=== PATIENT | male | born 1955 | race Caucasian/White ===

== ENCOUNTER → 2016-09-28 | Outpatient (CLI) | payer OTHER ==
[~2016-09-28] MED LIST: ATOR10TA88 PO; CHOL200010 PO; GABA-113 PO; HYDR12.55 PO; LISI-790 PO; METO25TA3 PO
--- NOTE | 2016-09-28 15:06 | DIAGNOSTIC IMAGING REPORT ---
CT OF THE CHEST WITHOUT IV CONTRAST CLINICAL HISTORY: Pulmonary nodule. COMPARISON STUDY: Chest CT November 24, 2015 and February 29, [address] of the abdomen and pelvis December 11, 2009. CT DOSE: 881.43 mGy.cm TECHNIQUE: Axial images of the chest were obtained without IV contrast. Images were reviewed in the axial, sagittal, and coronal planes. IV contrast was not administered for this examination. FINDINGS: No enlarged axillary, mediastinal or hilar lymph nodes are present. There is a partially calcified precarinal lymph node. There is no pericardial effusion. The size of the heart is normal. Central airways are patent. There is no consolidation to suggest pneumonia. Mild emphysema is noted. A 7 mm groundglass subpleural opacity within the left upper lobe shown on image 165 of [address] of November 24, 2015. This remains indeterminate. A 4 mm right middle lobe nodule shown image [address] of December 11, 2009. Therefore, this is benign. A few additional lower lung nodules are also unchanged. No new nodules are present. The bony thorax and upper abdomen are unremarkable with exception of a gallstone within the gallbladder. IMPRESSION: Unchanged appearance of the chest since initial CT of November 24, 2015. No change in the 7 mm subpleural groundglass opacity within the left upper lobe. This remains indeterminate and a follow-up chest CT in 6 months is recommended. The remainder of the pulmonary nodules are also unchanged since initial chest CT. Electronically signed by: Luciano Hannah M.D. 09/28/2016 3:05 PM Dictated Date/Time: 09/28/2016 2:55 PM
== END | disposition home or self-care (01) ==
LOC: C.CTS 14:37
PROVIDERS: ATTEND Internal Medicine
DX: R91.1 Solitary pulmonary nodule (principal)

== ENCOUNTER → 2016-10-28 | Outpatient (CLI) | payer OTHER ==
[2016-10-28 12:39] LABS: BASO % 0.6 %; BASO ABS # 0.06 K/uL (0-0.2); COMPLETE YES; EOS % 1.7 %; HEMATOCRIT 42.6 % (42-52); IG% 0.2 %; LYMPH ABS # 3.55 K/uL (1.2-3.4); MEAN CELL VOLUME 91.6 fL (80-100); MEAN CORPUSCULAR HEMOGLOBIN 31.8 pg (25-34); MEAN CORPUSCULAR HGB CONC 34.7 g/dl (32-36); MEAN PLATELET VOLUME 9.7 fL (7.4-10.4); MONO % 5.7 %; NEUT % 58.8 %; PLATELET COUNT 287 K/uL (130-400); RED BLOOD COUNT 4.65 M/uL (4.7-6.1); WHITE BLOOD COUNT 10.76 K/uL (4.8-10.8)
[2016-10-28 12:50] LABS: ALT/SGPT 80 U/L (12-78); BLOOD UREA NITROGEN 11 mg/dl (7-18); BUN/CREATININE RATIO 14.9 (10-20); CARBON DIOXIDE 22 mmol/L (21-32); CHLORIDE 101 mmol/L (98-107); CREATININE 0.75 mg/dl (0.60-1.40); GLUCOSE 89 mg/dl (70-99); POTASSIUM 3.6 mmol/L (3.5-5.1); SODIUM 136 mmol/L (136-145)
[2016-10-28 12:55] LABS: ALB/GLOB RATIO 0.9 (0.9-2); ALKALINE PHOSPHATASE 67 U/L (45-117); AST/SGOT 57 U/L (15-37)
[2016-10-28 12:57] LABS: ESTIMATED AVERAGE GLUCOSE 108 mg/dl; HA1C FLAG Normal (Normal)
== END | disposition home or self-care (01) ==
LOC: C.LABBFT 10:58
PROVIDERS: ATTEND Internal Medicine
DX: B19.20 Unspecified viral hepatitis C without hepatic coma (principal); Z12.5 Encounter for screening for malignant neoplasm of prostate; R73.9 Hyperglycemia, unspecified; E55.9 Vitamin D deficiency, unspecified

== ENCOUNTER → 2017-04-03 | Outpatient (CLI) | payer OTHER ==
--- NOTE | 2017-04-03 11:04 | DIAGNOSTIC IMAGING REPORT ---
(CHEST) THORAX WITHOUT CLINICAL HISTORY: 61 years-old Male presenting with 6 month pulmonary nodule follow-up. TECHNIQUE: Multidetector CT imaging of the chest was performed without the use of intravenous contrast. IV contrast: None. A dose lowering technique was used consistent with the principles of ALARA (as low as reasonably achievable). COMPARISON: 09/28/2016. CT DOSE (mGy.cm): The estimated cumulative dose is 549.78 mGy.cm. FINDINGS: [employer] topogram: Unremarkable. On soft tissue windows, normal thyroid and thoracic inlet. Few calcified precarinal mediastinal lymph nodes, possibly indicating prior granulomatous infection. Few subcentimeter subcarinal lymph nodes, nonspecific evaluation of the jules limited due to lack of intravenous contrast. Atherosclerosis of the aortic arch. Normal heart size. Coronary artery calcification. No pericardial or pleural effusion. Hepatic steatosis. Cholelithiasis. On lung windows, previously noted groundglass (subsolid) subpleural nodule in the left upper lobe again measures 7 mm in greatest dimension (series 4 image 175), not significantly changed. Previously noted solid right middle lobe nodule again measures 4 mm (series 4 image 238), unchanged since 2009. Subtle centrilobular groundglass opacities at the lung apices, more prominent on the current exam. Few additional small nodules unchanged from prior. Mild right upper lobe rocket wall thickening. On bone windows, degenerative changes of the thoracic spine. IMPRESSION: 1. No significant change in the subsolid left upper lobe nodule since 11/24/2015, which again measures 7 mm. The morphology remains suspicious however. Additional stable solid pulmonary nodules. Continued follow-up of the subsolid nodule could be considered. Fleischner Society 2017 recommendations below. 2. Subtle centrilobular groundglass opacities in the upper lobes, more prominent on the current exam. In the setting of a history of smoking, this could represent respiratory bronchiolitis among other possible etiologies. 3. Calcified mediastinal lymph nodes could suggest prior granulomatous infection. 4. Hepatic steatosis. Please refer to below summary of Fleischner Society 2017 recommendations for follow-up of incidental CT nodules (Neelima Urbano et al. Guidelines for management of incidental pulmonary nodules detected on CT images: From the Fleischner Society 2017. Radiology 2017; 284: 228-243.) SOLID NODULES Single nodule; size <6 mm * Low risk patients: No routine follow-up * High risk patients: Optional CT at 12 months Single nodule; size 6-8 mm * Low risk patients: CT at 6-12 months, then consider CT at 18-24 months * High risk patients: CT at 6-12 months, then at 18-24 months Single nodule; size >8 mm * Either low or high risk patients: Considered CT at 3 months, PET/CT, or tissue sampling Multiple nodules; size <6 mm * Low risk patients: No routine follow up * High risk patients: Optional CT at 12 months Multiple nodules; size 6-8 mm * Low risk patients: CT at 3-6 months, then consider CT at 18-24 months * High risk patients: CT at 3-6 months, then at 18-24 months Multiple nodules; size >8 mm * Low risk patients: CT at 3-6 months, then consider at 18-24 months * High risk patients: CT at 3-6 months, then at 18-24 months Note: These guidelines apply to incidental nodules. These guidelines did not apply to patients younger than 35 years, immunocompromised patients, or patients with cancer. * Low risk patients: Minimal or absent history of smoking and/or other known risk factors * High risk patients: History of smoking, exposure to other carcinogens, emphysema, fibrosis, upper lobe location, family history of lung cancer, etc. * If a nodule up to 8 mm is partly solid or is ground glass further follow-up is required after 24 months to exclude possible slow growing adenocarcinoma SUBSOLID NODULES Single ground-glass nodule * Nodule size < 6 mm: No routine follow-up * Nodule size > or = 6 mm: CT at 6-12 months to confirm persistence, then CT every 2 years until 5 years Single part-solid nodule * Nodule size < 6 mm: No routine follow-up * Nodules size > or = 6 mm: CT at 3-6 months to confirm persistence. If unchanged and solid component remains < 6 mm, annual CT should be performed for 5 years Multiple nodules * Nodule size < 6 mm: CT at 3-6 months. If stable, consider CT at 2 and 4 years. * Nodules size > or = 6 mm: CT at 3-6 months. Subsequent management based on the most suspicious nodule(s) Electronically signed by: Mark Kendall M.D. 04/03/2017 11:02 AM Dictated Date/Time: 04/03/2017 10:53 AM
== END | disposition home or self-care (01) ==
LOC: C.CTS 10:31
PROVIDERS: ATTEND Internal Medicine
DX: R91.1 Solitary pulmonary nodule (principal)

== ENCOUNTER → 2017-05-22 | Outpatient (CLI) | payer OTHER ==
[2017-05-22 17:48] LABS: CHOLESTEROL/HDL RATIO 2.1
== END | disposition home or self-care (01) ==
LOC: C.LABBFT 14:16
PROVIDERS: ATTEND Internal Medicine
DX: E78.5 Hyperlipidemia, unspecified (principal)

== ENCOUNTER → 2017-11-23 | Outpatient (CLI) | payer OTHER ==
[~2017-11-23] MED LIST changes: +ATOR10TA82 PO; -ATOR10TA88 PO
[2017-11-23 16:30] LABS: BASO % 0.4 %; BASO ABS # 0.04 K/uL (0-0.2); EOS % 2.4 %; EOS ABS # 0.27 K/uL (0-0.5); HEMATOCRIT 41.2 % (42-52); HEMOGLOBIN 14.3 g/dL (14.0-18.0); IG# 0.01 K/uL (0.00-0.02); LYMPH % 30.7 %; LYMPH ABS # 3.49 K/uL (1.2-3.4); MEAN CELL VOLUME 92.8 fL (80-100); MEAN CORPUSCULAR HEMOGLOBIN 32.2 pg (25-34); MEAN CORPUSCULAR HGB CONC 34.7 g/dl (32-36); MEAN PLATELET VOLUME 9.4 fL (7.4-10.4); MONO % 4.6 %; MONO ABS # 0.52 K/uL (0.11-0.59); NEUT % 61.8 %; NEUT ABS # 7.04 K/uL (1.4-6.5); PLATELET COUNT 300 K/uL (130-400); RED CELL DISTRIBUTION WIDTH CV 13.9 % (11.5-14.5); RED CELL DISTRIBUTION WIDTH SD 47.2 fL (36.4-46.3); WHITE BLOOD COUNT 11.37 K/uL (4.8-10.8)
[2017-11-23 16:41] LABS: ALBUMIN 3.4 gm/dl (3.4-5.0); ALT/SGPT 91 U/L (12-78); AST/SGOT 76 U/L (15-37); BLOOD UREA NITROGEN 11 mg/dl (7-18); CALCIUM 8.6 mg/dl (8.5-10.1); CARBON DIOXIDE 32 mmol/L (21-32); CREATININE 0.85 mg/dl (0.60-1.40); GLUCOSE 102 mg/dl (70-99); POTASSIUM 3.2 mmol/L (3.5-5.1); SODIUM 139 mmol/L (136-145)
[2017-11-23 16:51] LABS: ALKALINE PHOSPHATASE 77 U/L (45-117); TOTAL PROTEIN 7.9 gm/dl (6.4-8.2)
== END | disposition home or self-care (01) ==
LOC: C.LABBFT 14:19
PROVIDERS: ATTEND Internal Medicine
DX: B19.20 Unspecified viral hepatitis C without hepatic coma (principal); E78.5 Hyperlipidemia, unspecified; E55.9 Vitamin D deficiency, unspecified; Z12.5 Encounter for screening for malignant neoplasm of prostate

== ENCOUNTER → 2017-11-29 | Outpatient (CLI) | payer OTHER ==
--- NOTE | 2017-11-29 16:42 | DIAGNOSTIC IMAGING REPORT ---
(CHEST) THORAX WITHOUT CLINICAL HISTORY: 62 years-old Male presenting with R91.1 Pulmonary [id number]. TECHNIQUE: Multidetector CT imaging of the chest was performed without the use of intravenous contrast. IV contrast: None. A dose lowering technique was used consistent with the principles of ALARA (as low as reasonably achievable). COMPARISON: 04/03/2017. CT DOSE (mGy.cm): The estimated cumulative dose is 865.83 mGy.cm. FINDINGS: [employer] topogram: Unremarkable. On soft tissue windows, normal thyroid and thoracic inlet. Bilateral gynecomastia. Calcified mediastinal lymph nodes noted in the precarinal region. No axillary, supraclavicular, or mediastinal lymphadenopathy. Evaluation of the jules limited without intravenous contrast. Atherosclerosis of the aorta. Normal heart size. Coronary artery calcification. No pericardial or pleural effusion. Hepatic steatosis. Cholelithiasis. Mild circumferential wall thickening of the mid to distal esophagus suggested. On lung windows, redemonstration of the peripheral/subpleural groundglass nodule in the superior segment of the lingula, which now measures 8 mm (series 4 image 157), previously 7 mm. Multiple additional vague groundglass nodules in the upper lobes. This is similar to prior exam. Solid peripheral 4 mm right middle lobe nodule (series 4 image 238) calcified granuloma noted. No new nodule. No significant bronchial wall thickening. Airways patent. On bone windows, degenerative changes of the spine. IMPRESSION: 1. Stable to slight interval increase in size of the 8 mm groundglass peripheral nodule in the superior segment of the lingula. This remains most concerning for an adenomatous lesion, such as adenocarcinoma in situ. 2. Stable vague groundglass nodularity in the lung apices could represent respiratory bronchiolitis, especially if the patient has a history of smoking. 3. Stable solid right middle lobe nodule. No new pulmonary nodule. 4. Hepatic steatosis. 5. Cholelithiasis. Please refer to below summary of Fleischner Society 2017 recommendations for follow-up of incidental CT nodules (Neelima Urbano et al. Guidelines for management of incidental pulmonary nodules detected on CT images: From the Fleischner Society 2017. Radiology 2017; 284: 228-243.) SOLID NODULES Single nodule; size < 6 mm * Low risk patients: No routine follow-up * High risk patients: Optional CT at 12 months Single nodule; size 6-8 mm * Low risk patients: CT at 6-12 months, then consider CT at 18-24 months * High risk patients: CT at 6-12 months, then at 18-24 months Single nodule; size > 8 mm * Either low or high risk patients: Considered CT at 3 months, PET/CT, or tissue sampling Multiple nodules; size < 6 mm * Low risk patients: No routine follow up * High risk patients: Optional CT at 12 months Multiple nodules; size 6-8 mm * Low risk patients: CT at 3-6 months, then consider CT at 18-24 months * High risk patients: CT at 3-6 months, then at 18-24 months Multiple nodules; size > 8 mm * Low risk patients: CT at 3-6 months, then consider at 18-24 months * High risk patients: CT at 3-6 months, then at 18-24 months SUBSOLID NODULES Single ground-glass nodule * Nodule size < 6 mm: No routine follow-up * Nodule size > or = 6 mm: CT at 6-12 months to confirm persistence, then CT every 2 years until 5 years Single part-solid nodule * Nodule size < 6 mm: No routine follow-up * Nodules size > or = 6 mm: CT at 3-6 months to confirm persistence. If unchanged and solid component remains < 6 mm, annual CT should be performed for 5 years Multiple nodules * Nodule size < 6 mm: CT at 3-6 months. If stable, consider CT at 2 and 4 years. * Nodules size > or = 6 mm: CT at 3-6 months. Subsequent management based on the most suspicious nodule(s) NOTE: 1) These guidelines apply to incidental nodules. These guidelines do NOT apply to patients younger than 35 years, immunocompromised patients, or patients with cancer. 2) Risk categories: * Low risk patients: Minimal or absent history of smoking and/or other known risk factors * High risk patients: History of smoking, exposure to other carcinogens, emphysema, fibrosis, upper lobe location, family history of lung cancer, etc. 2) If a nodule up to 8 mm is partly solid or is ground glass, further follow-up is required after 24 months to exclude possible slow growing adenocarcinoma. Electronically signed by: Mark Kendall M.D. 11/29/2017 4:41 PM Dictated Date/Time: 11/29/2017 4:35 PM
== END | disposition home or self-care (01) ==
LOC: C.CTS 16:07
PROVIDERS: ATTEND Internal Medicine
DX: R91.1 Solitary pulmonary nodule (principal); R91.8 Other nonspecific abnormal finding of lung field; K76.0 Fatty (change of) liver, not elsewhere classified; K80.20 Calculus of gallbladder without cholecystitis without obstruction

== ENCOUNTER → 2017-12-26 | Outpatient (CLI) | payer OTHER ==
[2017-12-26 16:53] LABS: BASO % 0.5 %; BASO ABS # 0.05 K/uL (0-0.2); EOS % 2.1 %; EOS ABS # 0.23 K/uL (0-0.5); HEMATOCRIT 39.7 % (42-52); HEMOGLOBIN 13.4 g/dL (14.0-18.0); IG# 0.02 K/uL (0.00-0.02); LYMPH % 32.5 %; LYMPH ABS # 3.48 K/uL (1.2-3.4); MEAN CELL VOLUME 92.8 fL (80-100); MEAN CORPUSCULAR HEMOGLOBIN 31.3 pg (25-34); MEAN CORPUSCULAR HGB CONC 33.8 g/dl (32-36); MEAN PLATELET VOLUME 9.3 fL (7.4-10.4); MONO % 6.3 %; MONO ABS # 0.67 K/uL (0.11-0.59); NEUT % 58.4 %; NEUT ABS # 6.25 K/uL (1.4-6.5); PLATELET COUNT 268 K/uL (130-400); RED CELL DISTRIBUTION WIDTH CV 13.4 % (11.5-14.5); RED CELL DISTRIBUTION WIDTH SD 45.4 fL (36.4-46.3)
[2017-12-26 17:58] LABS: ALBUMIN 3.3 gm/dl (3.4-5.0); ALT/SGPT 20 U/L (12-78); AST/SGOT 19 U/L (15-37); BLOOD UREA NITROGEN 8 mg/dl (7-18); CALCIUM 8.7 mg/dl (8.5-10.1); CARBON DIOXIDE 29 mmol/L (21-32); CREATININE 0.81 mg/dl (0.60-1.40); GLUCOSE 81 mg/dl (70-99); POTASSIUM 3.5 mmol/L (3.5-5.1); SODIUM 135 mmol/L (136-145)
[2017-12-26 17:59] LABS: ALKALINE PHOSPHATASE 72 U/L (45-117); TOTAL PROTEIN 7.8 gm/dl (6.4-8.2)
== END | disposition home or self-care (01) ==
LOC: C.LABBFT 14:08
PROVIDERS: ATTEND Internal Medicine
DX: B18.2 Chronic viral hepatitis C (principal); Z79.899 Other long term (current) drug therapy

== ENCOUNTER 2020-07-22 13:57 | Inpatient (IN) ==
[2020-07-22] MEDS ORDERED: SODIUM CHLORIDE 0.9% 1000ML 1,000 ML IV ONE (14:31)
[2020-07-22] MEDS ORDERED: ONDANSETRON INJ 2 MG/ML 2 ML VIAL IV STA (14:31)
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
--- NOTE | 2020-07-22 15:26 | XRay Report ---
XR chest 1V portable HISTORY: Shortness of breath. Cough. COMPARISON: Chest 12/07/2012. PET CT 06/02/2020. FINDINGS: No pneumothorax. No pleural effusions. The heart is normal in size. No new focal lung conso lidations to suggest pneumonia. No evidence for pulmonary edema. The patient's known pulmonary nodule s are better appreciated on the recent PET scan. IMPRESSION: No acute process. ACT 112: Negative or not required by law. Electronically signed by: Ad Aldridge M.D. 07/22/2020 3:25 PM
[2020-07-22 16:07] LABS: Basophils # (auto) 0.01 K/uL (0-0.2); Basophils % (auto) 0.1 %; Eosinophils # (auto) 0.06 K/uL (0-0.5); Eosinophils % (auto) 0.4 %; Hematocrit (blood only) 36.6 % (42-52); Hemoglobin 13.2 g/dL (14.0-18.0); Immature Granulocytes # (auto) 0.02 K/uL (0.00-0.02); Immature Granulocytes % (auto) 0.1 %; Lymphocytes # (auto) 1.79 K/uL (1.2-3.4); Lymphocytes % (auto) 11.6 %; Mean Corpuscular Hemoglobin 31.2 pg (25-34); Mean Corpuscular Hgb Conc 36.1 g/dL (32-36); Mean Corpuscular Volume 86.5 fL (80-100); Monocytes # (auto) 0.85 K/uL (0.11-0.59); Monocytes % (auto) 5.5 %; Neutrophils # (auto) 12.64 K/uL (1.4-6.5); Neutrophils % (auto) 82.3 %; Platelet Count 319 K/uL (130-400); RDW Standard Deviation 41.5 fL (36.4-46.3); Red Blood Count 4.23 M/uL (4.7-6.1); White Blood Count 15.37 K/uL (4.8-10.8)
[2020-07-22 16:24] LABS: Alanine Aminotransferase 19 U/L (12-78); Albumin Level 3.8 gm/dl (3.4-5.0); Aspartate Aminotransferase 16 U/L (15-37); BUN Creatinine Ratio 14.2 (10-20); Blood Urea Nitrogen 9 mg/dl (7-18); Calcium 9.1 mg/dl (8.5-10.1); Carbon Dioxide 27 mmol/L (21-32); Chloride 84 mmol/L (98-107); Est GFR (African American) 119.8; Est GFR (Non-African American) 103.4; Glucose 96 mg/dl (70-99); Lipase 109 U/L (73-393); Sodium 121 mmol/L (136-145)
[2020-07-22 16:28] LABS: Albumin Globulin Ratio 0.9 (0.9-2); Alkaline Phosphatase 77 U/L (45-117); Bilirubin,Total 0.7 mg/dl (0.2-1); Globulin 4.4 gm/dl (2.5-4.0); Total Protein 8.2 gm/dl (6.4-8.2); Troponin I < 0.015 ng/ml (0-0.045)
[2020-07-22 16:41] LABS: Appearance Urine Clear (Clear); Bacteria Urine Automated Negative (Negative); Bilirubin Urine Negative (Negative); Blood Urine 1+ (Negative); Cast Urine Automated 0 /lpf (0-5); Color Urine Yellow; Glucose Urine UA Negative (Negative); Ketones Urine 3+ (Negative); Leukocyte Esterase Urine Trace (Negative); Nitrite Urine Negative (Negative); RBC Urine Automated >30 /hpf (0-4); Urobilinogen Urine Negative (Negative); pH Urine >= 9.0 (4.5-7.5)
[2020-07-22 16:52] LABS: Protein Urine 1+ (Negative)
[2020-07-22 16:53] LABS: Sulfosalicylic Acid Urine Positive (Negative)
[2020-07-22] MEDS ORDERED: IOVERSOL 100ml IV ONE (17:25)
--- NOTE | 2020-07-22 17:37 | CT Scan Report ---
CT OF THE HEAD WITHOUT CONTRAST CLINICAL HISTORY: vomiting, hyponatremia COMPARISON STUDY: Head CT December 26, 2007. CT DOSE: 729.78 mGycm TECHNIQUE: Helical axial images of the head were obtained without IV contrast. Automated exposure con trol was utilized for the study. A dose lowering technique was utilized adhering to the principles o f ALARA. FINDINGS: No acute intracranial hemorrhage, midline shift or mass effect is present. The ventricular system is unremarkable. The basal cisterns are patent. No extra-axial collections are present. There are no findings to suggest acute dural sinus thrombosis or acute territorial infarct. No significant calvarial abnormalities are present. Visualized portions of the sinuses and mastoid air cells are mitchel ar. IMPRESSION: No acute intracranial findings. ACT 112: Negative or not required by law. Electronically signed by: Luciano Hannah M.D. 07/22/2020 5:36 PM
--- NOTE | 2020-07-22 17:53 | CT Scan Report ---
CT OF THE ABDOMEN AND PELVIS WITH CONTRAST CLINICAL HISTORY: abdominal pain, vomiting COMPARISON STUDY: CT of the abdomen and pelvis December 11, 2009. PET/CT June 10, 2020. TECHNIQUE: Following IV administration of 95 mL of Optiray-320, axial images of the abdomen and pelvi s were obtained from the lung bases to the proximal femurs. Images were reviewed in the axial, sagitt al, and coronal planes. IV contrast was administered without complication. Automated exposure contro l was utilized for the study. A dose lowering technique was utilized adhering to the principles of A DIANNA. CT DOSE: 941.80 mGycm FINDINGS: Lung bases are unremarkable. Note is made of mild circumferential wall thickening of the di stal esophagus. Stomach is mildly fluid-filled. Gallstone is noted within the gallbladder without kleber dence for acute cholecystitis. No suspicious hepatic lesions are present. There is no biliary or panc reatic ductal dilatation. The spleen, adrenal glands and pancreas are unremarkable as is the right ki dney. A 2.2 cm left renal lesion likely reflects a cyst. There is no hydronephrosis. There is no evid ence for a bowel obstruction. The appendix is not visualized. There is minimal infiltration with slig ht thickening of the adjacent peritoneal reflection adjacent to the distal descending colon. There is extensive colonic diverticulosis. There is no free air or abscess. Mild distention of the bladder is noted. There is a fat-containing left inguinal hernia. There is a lipoma within the right gluteus ma ximus. No acute fracture or suspicious lesion is identified within visualized skeletal structures. Th ere is no lymphadenopathy or ascites. There is moderate plaque of the abdominal aorta which is normal in caliber. IMPRESSION: 1. Colonic diverticulosis with subtle infiltration adjacent to the distal descending colon. Mild acut e diverticulitis would be difficult to exclude. No free air or abscess. 2. Wall thickening of the distal esophagus which may reflect esophagitis. 3. Cholelithiasis. ACT 112: Negative or not required by law. Electronically signed by: Luciano Hannah M.D. 07/22/2020 5:52 PM
[2020-07-22] MEDS ORDERED: PIPERACILLIN/TAZOBACTAM 4.5 GM/120 ML BAG IV ONE (17:57)
[2020-07-22] MEDS ORDERED: PIPERACILL/TAZOBAC CONSULT ACTIVE PRN (17:57)
[2020-07-22] MEDS ORDERED: metroNIDAZOLE 500 MG/100 ML BAG IV STA (17:58)
[2020-07-22] MEDS ORDERED: FAMOTIDINE 20MG/5ML IV PUSH IV STA (18:07)
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
[2020-07-22] MEDS: CIPROFLOXACIN / D5W 400 MG/200 ML BAG IV SCH (18:27)
[2020-07-22] MEDS: metroNIDAZOLE 500 MG/100 ML BAG IV SCH (22:52)
[2020-07-22] MEDS: GABAPENTIN 300 MG CAP PO SCH (22:53)
[2020-07-22] MEDS: ROSUVASTATIN CALCIUM 5 MG TAB PO SCH (22:53)
[2020-07-22] MEDS: POTASSIUM CHLORIDE 40 MEQ in SODIUM CHLORIDE 0.9% 1000ML 1,000 ML IV SCH (23:02)
[2020-07-23] MEDS: POTASSIUM CHLORIDE 40 MEQ in SODIUM CHLORIDE 0.9% 1000ML 1,000 ML IV SCH (05:38)
[2020-07-23] MEDS: metroNIDAZOLE 500 MG/100 ML BAG IV SCH ×3 (05:38→22:45)
[2020-07-23 05:56] LABS: Basophils # (auto) 0.01 K/uL (0-0.2); Basophils % (auto) 0.1 %; Eosinophils # (auto) 0.12 K/uL (0-0.5); Eosinophils % (auto) 1.2 %; Hemoglobin 13.3 g/dL (14.0-18.0); Immature Granulocytes # (auto) 0.02 K/uL (0.00-0.02); Immature Granulocytes % (auto) 0.2 %; Lymphocytes # (auto) 2.23 K/uL (1.2-3.4); Lymphocytes % (auto) 22.6 %; Mean Corpuscular Hemoglobin 30.6 pg (25-34); Mean Corpuscular Hgb Conc 34.1 g/dL (32-36); Mean Corpuscular Volume 89.7 fL (80-100); Mean Platelet Volume 9.2 fL (7.4-10.4); Monocytes # (auto) 0.77 K/uL (0.11-0.59); Monocytes % (auto) 7.8 %; Neutrophils # (auto) 6.71 K/uL (1.4-6.5); Neutrophils % (auto) 68.1 %; Platelet Count 328 K/uL (130-400); RDW Coefficient of Variation 13.6 % (11.5-14.5); RDW Standard Deviation 44.8 fL (36.4-46.3); Red Blood Count 4.35 M/uL (4.7-6.1); White Blood Count 9.86 K/uL (4.8-10.8)
[2020-07-23 06:28] LABS: Albumin Globulin Ratio 0.9 (0.9-2); Albumin Level 3.6 gm/dl (3.4-5.0); BUN Creatinine Ratio 8.6 (10-20); Bilirubin,Total 0.7 mg/dl (0.2-1); Calcium 8.9 mg/dl (8.5-10.1); Creatinine Clr Calc Pharmacy 69.9 ml/min; Est GFR (African American) 108.5; Est GFR (Non-African American) 93.6; Globulin 4.2 gm/dl (2.5-4.0); Magnesium 2.4 mg/dl (1.8-2.4); Potassium 3.8 mmol/L (3.5-5.1); Total Protein 7.8 gm/dl (6.4-8.2)
[2020-07-23] MEDS ORDERED: ONDANSETRON INJ 2 MG/ML 2 ML VIAL IV PRN (07:28)
[2020-07-23] MEDS: GABAPENTIN 300 MG CAP PO SCH ×2 (09:17→20:47)
[2020-07-23] MEDS: CHOLECALCIFEROL 1,000 UNITS 25 MCG TAB PO SCH (09:17)
[2020-07-23] MEDS: lisinopril 5 MG TAB PO SCH (09:17)
[2020-07-23] MEDS: METOPROLOL SUCC 25MG EXT REL TAB PO SCH (09:17)
[2020-07-23] MEDS: FAMOTIDINE 20MG IV PUSH 20 MG/5 ML SYR IV SCH (10:00)
[2020-07-23] MEDS: CIPROFLOXACIN / D5W 400 MG/200 ML BAG IV SCH ×2 (10:00→20:47)
[2020-07-23] MEDS: ROSUVASTATIN CALCIUM 5 MG TAB PO SCH (20:47)
[2020-07-24] MEDS: metroNIDAZOLE 500 MG/100 ML BAG IV SCH (05:54)
--- NOTE | 2020-07-24 07:23 | Hospitalist Progress Note ---
Date of Service July 23, 2020 Assessment & Plan (1) Acute gastroenteritis: Famotidine 20mg IV daily Initially NPO, now tolerating a clear liquid diet. Advance diet slowly as tolerated (2) Vomiting: Secondary to gastroenteritis +/- hyponatremia Chronic marijuana use in history but given never had this previously would favor acute gastroenteritis/diverticulitis over cannabis hyperemesis. Workup for bronchogenic cancer as below. If does not resolve may need MRI w/wo IV contrast. Ondansetron 4mg Q4H PRN (3) Acute diverticulitis: No significant abdominal pain but given CT findings and WBC reasonable to start antibiotics for this but far from certain diagnosis. 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 Last colonoscopy in 2016 Start IV ciprofloxacin and metronidazole now tolerating a clear liquid diet. IV fluids as below (4) Hyponatremia: Suspect secondary to HCTZ use and dehydration. No need for urine studies. Hold HCTZ, NSS +KCl 40 meq @ 150 ml/hr sodium improved. (5) Hypertension: Hold HCTZas above. Continue lisinopril 5mg PO daily and metoprolol succinate 25mg PO daily (6) Pulmonary nodule: Follow up with Dr Vela as previously arranged. (7) IgG monoclonal gammopathy of uncertain significance: Monitored by PCP/hematology (8) Tobacco dependence: Hold Chantix while having nausea and vomiting Resume on discharge. Admission and Anticipated Discharge Date Admission Date: July 22, 2020 Subjective Patient reports feeling better today. Review of Systems Review of Systems: All systems reviewed & are unremarkable except as noted in HPI & below Physical Exam Physical Exam: Constitutional: well developed and well nourished; no acute distress Eyes: + anicteric sclerae; normal pupil size ENMT: external ear and nose normal, oropharynx normal Neck: trachea midline Respiratory: normal respiratory effort, lungs clear to auscultation Cardiovascular: RRR, no murmur, no edema Gastrointestinal (Abdomen): Inspection/Auscultation: abdomen normal to inspection and normal bowel sounds; abdomen not distended Percussion/Palpation: abdomen soft; abdomen nontender, no guarding and abdomen not rigid Musculoskeletal: Above knee amputations well healed Skin: no rashes, warm and dry Neurologic: moves all extremities and awake; not confused Psychiatric: A+Ox3, euthymic affect Genitourinary: no CVA tenderness Results & Data Results & Data ([place]) Vital Signs (Past 12 Hours) Vital Signs Temp Pulse Resp BP Pulse Ox 07/23/20 22:56 36.1 C L 52 L 16 145/56 H 98 PG Care Time/CCT Total # of Minutes Spent Total Time Spent with Patient: Total time spent is greater than 50% in coordination of care (as documented) at patient's floor/unit and/or counseling patient: Coding Level of Care Code 97247 Subseq Hosp Care Lvl 2 Diagnoses Acute gastroenteritis K52.9 Vomiting R11.2 Nausea presence: with nausea Vomiting Intractability: non-intractable Vomiting type: unspecified Acute diverticulitis K57.92 Hyponatremia E87.1 Hypertension I10 Pulmonary nodule R91.1 IgG monoclonal gammopathy of uncertain significance D47.2 Tobacco dependence F17.200 Time Spent (min) 25 (1) Vomiting Nausea presence: with nausea Vomiting Intractability: non-intractable Vomiting type: unspecified Qualified Code(s): R11.2 - Nausea with vomiting, unspecified
[2020-07-24] MEDS: lisinopril 5 MG TAB PO SCH (08:51)
[2020-07-24] MEDS: METOPROLOL SUCC 25MG EXT REL TAB PO SCH (08:51)
[2020-07-24] MEDS: CHOLECALCIFEROL 1,000 UNITS 25 MCG TAB PO SCH (08:51)
[2020-07-24] MEDS: CIPROFLOXACIN / D5W 400 MG/200 ML BAG IV SCH (08:51)
[2020-07-24] MEDS: GABAPENTIN 300 MG CAP PO SCH (08:52)
[2020-07-24] MEDS: FAMOTIDINE 20MG IV PUSH 20 MG/5 ML SYR IV SCH (08:52)
--- NOTE | 2020-07-24 13:00 | Discharge Summary ---
Date of Service July 24, 2020 Admission HPI Per Admitting Provider Rufino Patel is a 64-year-old male who presents to the ER with intractable vomiting. He reports a 1 day history of nausea and vomiting starting last night. He thinks it may have been precipitated by some lettuce and tomatoes he ate which were beyond the sale by date. He feels a burning sensation in his upper abdomen but no abdominal pain. No diarrhea or constipation. He is unable to keep anything down and has not taken his usual medications today. Never had anything similar previously. With the vomiting episodes he has a cough and shortness of breath but outside of these episodes he feels ok. He is currently undergoing workup for lung nodule under Dr Vela with repeat scan in August. Concern for bronchogenic carcinoma on PET/CT although biopsy non-diagnostic. In the ER he had an elevated WBC and CT abd/pelvis concerning for subtle infiltration adjacent to the distal descending colon. Principal Diagnosis Acute diverticulitis Discharge Exam Constitutional: well developed and well nourished; no acute distress Eyes: + anicteric sclerae; normal pupil size ENMT: external ear and nose normal, oropharynx normal Neck: trachea midline Respiratory: normal respiratory effort, lungs clear to auscultation Cardiovascular: RRR, no murmur, no edema Gastrointestinal (Abdomen): Inspection/Auscultation: abdomen normal to inspection and normal bowel sounds; abdomen not distended Percussion/Palpation: abdomen soft; abdomen nontender, no guarding and abdomen not rigid Musculoskeletal: Above knee amputations well healed Skin: no rashes, warm and dry Neurologic: moves upper extremities and awake; Psychiatric: A+Ox3, euthymic affect Genitourinary: no CVA tenderness Discharge Data Allergies Allergy/AdvReac Type Severity Reaction Status Date / Time bee venom protein (honey bee) Allergy Severe SWELLING Verified 07/22/20 14:55 Consultations 07/22/20 17:57 ED Decision to Admit Stat Ordered Studies 07/22/20 16:10 CT abd pelvis IV con only Stat 07/22/20 16:42 CT head/brain wo con Stat Hospital Course (1) Acute gastroenteritis: Famotidine 20mg IV daily Initially NPO, now tolerating a clear liquid diet. Advance diet slowly as tolerated Ok to discharge on low residue diet. (2) Vomiting: Secondary to gastroenteritis +/- hyponatremia Chronic marijuana use in history but given never had this previously would favor acute gastroenteritis/diverticulitis over cannabis hyperemesis. Workup for bronchogenic cancer as below. resolved. Ondansetron 4mg Q4H PRN (3) Acute diverticulitis: No significant abdominal pain but given CT findings and WBC reasonable to start antibiotics for this but far from certain diagnosis. 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 Last colonoscopy in 2016 Start IV ciprofloxacin and metronidazole now tolerating a clear liquid diet. will discharge on oral antibiotics for 7 days. (4) Hyponatremia: Suspect secondary to HCTZ use and dehydration. No need for urine studies. sodium improved. will stop HCTZ at discharge. (5) Hypertension: Hold HCTZas above. Continue lisinopril 5mg PO daily and metoprolol succinate 25mg PO daily (6) Pulmonary nodule: Follow up with Dr Vela as previously arranged. (7) IgG monoclonal gammopathy of uncertain significance: Monitored by PCP/hematology (8) Tobacco dependence: Hold Chantix while having nausea and vomiting Resume on discharge. Total Time Total Time Spent Total Time Spent (In Minutes): 32 Total Time Includes: Examination of the Patient, Discharge Planning and Medication Reconciliation Discharge Plan Discharge Items Patient Disposition: Home - Self-Care Reason For Visit: Diverticulitis, Intractable Vomiting, Esophagitis Discharge Diagnosis: acute diverticultis Activity: Resume your previous activity Non-emergency contact: Primary Care Provider Call non-emergency contact if: you have any medication questions Follow-up/Referrals: Gabriel Ramey MD [Primary Care Provider] - 07/29/20 1:30 pm ([facility] WHITMAN) Diet: Regular, Full liquid and Low Fiber Addtl Attending Provider Instructions: You have been hospitalized for an acute medical problem. During your stay at [facility], we have made an effort to correct the problem that brought you to the hospital while keeping you as comfortable as possible. Medications were used to bring your condition under control and your discharge instructions will include directions for any medications you should take after leaving the hospital. Please make sure you see your Primary Care Provider as part of your follow up plan. Can slowly advance diet over next 2-3 days. Recommend low fiber diet for a week, will need PCP followup in 1-2 weeks Pending Studies at Discharge: No Stand-Alone Forms: My [facility] [employer], Smoking Cessation Medications and DC Order Prescriptions: New ciprofloxacin HCl [Cipro] 500 mg tablet 500 mg PO BID Qty: 14 RF: 0 metronidazole 500 mg tablet 500 mg PO Q8H 7 Days Qty: 21 RF: 0 Continued gabapentin 300 mg capsule 300 mg PO BID Qty: 60 RF: 5 Chantix Continuing Month Box 1 mg tablet 1 mg PO BID Qty: 56 RF: 0 cholecalciferol (vitamin D3) 2,000 unit capsule 2,000 units PO QAM RF: 0 rosuvastatin [Crestor] 5 mg tablet 5 mg PO HS RF: 0 lisinopril 5 mg tablet 5 mg PO QAM RF: 0 metoprolol succinate 25 mg tablet extended release 24 hr 25 mg PO QAM RF: 0 Discontinued hydrochlorothiazide 12.5 mg tablet 12.5 mg PO QAM RF: 0 Discharge Orders: Discharge Order (Routine); Ordered 07/24/20 Ordered By: Mikel Reese Admission Data Admit Date/Time: 07/22/20 18:05 Attending Provider: Mikel Reese Admit Provider: Maykel Mata Primary Care Provider: Gabriel Ramey Other Providers: Maykel Mata Other Interventions: Discharge Summary Assessment (RN) Last Done: 07/24/20 13:07 Coding Level of Care Code D/C Day Management >30 mins Diagnoses Acute gastroenteritis K52.9 Vomiting R11.2 Nausea presence: with nausea Vomiting Intractability: non-intractable Vomiting type: unspecified Acute diverticulitis K57.92 Hyponatremia E87.1 Hypertension I10 Pulmonary nodule R91.1 IgG monoclonal gammopathy of uncertain significance D47.2 Tobacco dependence F17.200 Time Spent (min) 32
== END 2020-07-24 14:41 | disposition home or self-care (01) | DRG 392 ==
LOC: ED 13:57 → 3N 18:05 → SUATTDRO 18:05 → 3N 21:27